=== PATIENT | female | born 1980 | race Hispanic/Latino ===

== ENCOUNTER 2019-01-29 14:45 | Emergency (ER) | payer MEDICAID ==
[2019-01-29 16:06] LABS: BASOPHILS % (AUTO) 0.5 % (0.0-5.0); EOSINOPHILS % (AUTO) 0.4 % (0.0-8.0); HEMATOCRIT 35.9 % (36-48); LYMPHOCYTES % (AUTO) 39.2 % (21.0-51.0); MEAN CORPUSCULAR HEMOGLOBIN 27.4 pg (27.0-33.0); MEAN CORPUSCULAR HGB CONC 32.9 g/dL (32.0-36.0); MEAN CORPUSCULAR VOLUME 83.2 fL (79-99); MONOCYTES % (AUTO) 9.5 % (3.0-13.0); NEUTROPHILS % (AUTO) 50.4 % (40.0-77.0); NUCLEATED RED BLOOD CELLS 0.1 % (0.0-0.19); PLATELET COUNT (AUTO) 209 K/uL (130-400); RED BLOOD CELL COUNT(AUTO) 4.31 MIL/uL (4.00-5.50); RED CELL DISTRIBUTION WIDTH 14.7 % (11.0-15.5); WHITE BLOOD COUNT (AUTO) 5.4 K/uL (4.8-10.8)
[2019-01-29 16:27] LABS: CARBON DIOXIDE 29 mmol/L (21-32); CHLORIDE 107 mmol/L (101-111); CREATININE 0.7 mg/dL (0.5-1.5); GLOMERULAR FILTR. RATE CALC 99 mL/min (>60); GLUCOSE,RANDOM 82 mg/dL (70-105); POTASSIUM 3.3 mmol/L (3.5-5.1); SODIUM SERUM 143 mmol/L (136-145); UREA NITROGEN, BLOOD 13 mg/dL (7-18)
[2019-01-29 16:31] LABS: ALANINE AMINOTRANSFERASE 28 U/L (12-78); ALBUMIN 3.8 g/dL (3.5-5.0); ASPARTATE AMINOTRANSFERASE 23 U/L (10-37); BILIRUBIN,TOTAL 0.3 mg/dL (0.2-1.0); TOTAL PROTEIN, SERUM 8.2 g/dL (6.0-8.3)
[2019-01-29 16:32] LABS: ALCOHOL, BLOOD < 3 mg/dL (0-10)
[2019-01-29 17:45] LABS: AMPHET/METH SCREEN,URINE NEGATIVE (NEGATIVE); BARBITURATE SCREEN, URINE NEGATIVE (NEGATIVE); BENZODIAZEPINES SCREEN,URINE POSITIVE (NEGATIVE); CANNABINOID SCREEN,URINE NEGATIVE (NEGATIVE); COCAINE SCREEN,URINE NEGATIVE (NEGATIVE); OPIATE SCREEN,URINE NEGATIVE (NEGATIVE); PHENCYCLIDINE SCREEN,URINE NEGATIVE (NEGATIVE)
== END 2019-01-29 18:02 | disposition home or self-care (01) ==
LOC: EDH 14:45
DX: F41.9 Anxiety disorder, unspecified (principal); G40.909 Epilepsy, unspecified, not intractable, without status epilepticus; Z98.2 Presence of cerebrospinal fluid drainage device; Z72.0 Tobacco use; Z88.8 Allergy status to other drugs, medicaments and biological substances
CPT/HCPCS: 36415; 80053; 80305; 85025; 99284; G0480

== ENCOUNTER 2019-01-30 06:43 | Emergency (ER) | payer MEDICAID ==
[2019-01-30] MEDS ORDERED: DiphenhydrAMINE HCL 50 MG/ML VIAL ONE (07:24)
== END 2019-01-30 07:43 | disposition home or self-care (01) ==
LOC: EDH 06:43
DX: F41.9 Anxiety disorder, unspecified (principal); F33.8 Other recurrent depressive disorders; Z88.8 Allergy status to other drugs, medicaments and biological substances; Z79.899 Other long term (current) drug therapy
CPT/HCPCS: 96372; 99284; J1200

== ENCOUNTER 2019-05-14 22:02 | Emergency (ER) | payer OTHER, MEDICARE ==
[2019-05-14] MEDS ORDERED: ACETAMINOPHEN 325 MG TAB ONE (22:33)
== END 2019-05-14 23:23 | disposition home or self-care (01) ==
LOC: EDH 22:02
DX: S63.617A Unspecified sprain of left little finger, initial encounter (principal); S63.615A Unspecified sprain of left ring finger, initial encounter; F41.9 Anxiety disorder, unspecified; Z87.891 Personal history of nicotine dependence; Z88.8 Allergy status to other drugs, medicaments and biological substances; Z79.899 Other long term (current) drug therapy; W18.39XA Other fall on same level, initial encounter; Y93.01 Activity, walking, marching and hiking; Y92.89 Other specified places as the place of occurrence of the external cause; Y99.8 Other external cause status
CPT/HCPCS: 73140; 99282

== ENCOUNTER 2020-04-01 02:53 | Emergency (ER) | payer OTHER, MEDICARE | END 2020-04-01 03:08 | disposition home or self-care (01) | LOC: EDH 02:53 | DX: F32.89 Other specified depressive episodes (principal); F41.9 Anxiety disorder, unspecified; Z88.8 Allergy status to other drugs, medicaments and biological substances | CPT/HCPCS: 99281 ==

== ENCOUNTER 2020-10-01 16:46 | Emergency (ER) | payer OTHER, MEDICARE ==
[2020-10-01] MEDS ORDERED: KETOROLAC TROMETHAMINE 60 MG/2 ML VIAL ONE (17:52)
[2020-10-01] MEDS ORDERED: LORAZEPAM 1 MG TABLET ONE (17:53)
[2020-10-01 19:49] LABS: AMPHET/METH SCREEN,URINE NEGATIVE (NEGATIVE); BARBITURATE SCREEN, URINE NEGATIVE (NEGATIVE); BENZODIAZEPINES SCREEN,URINE NEGATIVE (NEGATIVE); CANNABINOID SCREEN,URINE NEGATIVE (NEGATIVE); COCAINE SCREEN,URINE NEGATIVE (NEGATIVE); OPIATE SCREEN,URINE NEGATIVE (NEGATIVE); PHENCYCLIDINE SCREEN,URINE NEGATIVE (NEGATIVE)
== END 2020-10-01 20:51 | disposition home or self-care (01) ==
LOC: EDH 16:46
DX: F43.0 Acute stress reaction (principal); F41.9 Anxiety disorder, unspecified; R51.9 Headache, unspecified; Z72.0 Tobacco use; Z88.9 Allergy status to unspecified drugs, medicaments and biological substances
CPT/HCPCS: 70450; 80305; 81025; 96372; 99284; J1885

== ENCOUNTER 2020-12-11 12:59 | Emergency (ER) | payer OTHER, MEDICARE ==
[~2020-12-11] VITALS: Ht 167.6 cm; Wt 74.8 kg
[2020-12-11 13:15] VITALS: BP 106/73
[2020-12-11 13:26] LABS: BASOPHILS % (AUTO) 0.6 % (0.0-5.0); LYMPHOCYTES % (AUTO) 17.8 % (21.0-51.0); MEAN CORPUSCULAR HEMOGLOBIN 29.1 pg (27.0-33.0); MEAN CORPUSCULAR HGB CONC 32.6 g/dL (32.0-36.0); MEAN CORPUSCULAR VOLUME 89.4 fL (79-99); MONOCYTES % (AUTO) 6.9 % (3.0-13.0); NEUTROPHILS % (AUTO) 74.4 % (40.0-77.0); PLATELET COUNT (AUTO) 220 K/uL (130-400); RED CELL DISTRIBUTION WIDTH 12.6 % (11.0-15.5); WHITE BLOOD COUNT (AUTO) 6.5 K/uL (4.8-10.8)
[2020-12-11 13:35] LABS: CREATININE 0.7 mg/dL (0.5-1.5); POTASSIUM 4.2 mmol/L (3.5-5.1)
[2020-12-11 13:36] LABS: APPEARANCE,URINE Cloudy (CLEAR); BILIRUBIN,URINE Negative (NEGATIVE); COLOR,URINE Yellow (YELLOW); GLUCOSE, URINE (UA) Negative (NEGATIVE); KETONES,URINE Trace mg/dL (NEGATIVE); LEUKOCYTE ESTERASE ,URINE Moderate (NEGATIVE); NITRATE,URINE Negative (NEGATIVE); OCCULT BLOOD,URINE Negative (NEGATIVE); PROTEIN,URINE Trace mg/dL (NEGATIVE)
[2020-12-11 13:40] LABS: ALBUMIN 3.8 g/dL (3.5-5.0); BILIRUBIN,TOTAL 0.3 mg/dL (0.2-1.0); PHENYTOIN (DILANTIN) 14.3 mcg/mL (10.0-20.0); TOTAL PROTEIN, SERUM 8.7 g/dL (6.0-8.3)
[2020-12-11 13:43] LABS: AMPHET/METH SCREEN,URINE NEGATIVE (NEGATIVE); BARBITURATE SCREEN, URINE NEGATIVE (NEGATIVE); BENZODIAZEPINES SCREEN,URINE NEGATIVE (NEGATIVE); CANNABINOID SCREEN,URINE NEGATIVE (NEGATIVE); COCAINE SCREEN,URINE NEGATIVE (NEGATIVE); OPIATE SCREEN,URINE NEGATIVE (NEGATIVE); PHENCYCLIDINE SCREEN,URINE NEGATIVE (NEGATIVE)
[2020-12-11 13:56] LABS: HCG,QUAL RESULT NEGATIVE (NEGATIVE)
[2020-12-11 14:03] LABS: BACTERIA,URINE Few /HPF (None Seen); MUCUS,URINE Few LPF (None Seen); RBC,URINE 0-1 /HPF (0-1); SQUAMOUS EPITHELIAL CELL,UR Moderate /HPF (0-2)
== END 2020-12-11 15:56 | disposition left against medical advice (07) ==
LOC: EDH 12:59
DX: R56.9 Unspecified convulsions (principal); Z53.21 Procedure and treatment not carried out due to patient leaving prior to being seen by health care provider
CPT/HCPCS: 36415; 80053; 80177; 80185; 80305; 81001; 81025; 85025; 87088

== ENCOUNTER 2021-10-22 23:41 | Emergency (ER) | payer OTHER, MEDICARE ==
[~2021-10-22] VITALS: Ht 154.9 cm; Wt 78.0 kg
[2021-10-23 00:45] LABS: APPEARANCE,URINE Clear (CLEAR); BILIRUBIN,URINE Negative (NEGATIVE); COLOR,URINE Yellow (YELLOW); GLUCOSE, URINE (UA) Negative (NEGATIVE); KETONES,URINE Negative (NEGATIVE); LEUKOCYTE ESTERASE ,URINE Trace (NEGATIVE); NITRATE,URINE Negative (NEGATIVE); OCCULT BLOOD,URINE Negative (NEGATIVE); PROTEIN,URINE Negative (NEGATIVE); UROBILINOGEN,URINE 0.2 mg/dL (0.2-1.0)
[2021-10-23 00:55] LABS: BACTERIA,URINE None Seen /HPF (None Seen); RBC,URINE None Seen /HPF (0-1); WBC,URINE 0-1 /HPF (0-1)
[2021-10-23 00:58] LABS: AMPHET/METH SCREEN,URINE NEGATIVE (NEGATIVE); BARBITURATE SCREEN, URINE NEGATIVE (NEGATIVE); BENZODIAZEPINES SCREEN,URINE NEGATIVE (NEGATIVE); CANNABINOID SCREEN,URINE NEGATIVE (NEGATIVE); COCAINE SCREEN,URINE NEGATIVE (NEGATIVE); OPIATE SCREEN,URINE NEGATIVE (NEGATIVE); PHENCYCLIDINE SCREEN,URINE NEGATIVE (NEGATIVE)
[2021-10-23 01:04] VITALS: BP 135/78
[2021-10-23 01:17] LABS: BASOPHILS % (AUTO) 0.6 % (0.0-5.0); EOSINOPHILS % (AUTO) 0.4 % (0.0-8.0); HEMATOCRIT 36.7 % (36-48); LYMPHOCYTES % (AUTO) 29.7 % (21.0-51.0); MEAN CORPUSCULAR HEMOGLOBIN 27.2 pg (27.0-33.0); MEAN CORPUSCULAR HGB CONC 31.9 g/dL (32.0-36.0); MEAN CORPUSCULAR VOLUME 85.3 fL (79-99); NEUTROPHILS % (AUTO) 59.8 % (40.0-77.0); PLATELET COUNT (AUTO) 218 K/uL (130-400); RED CELL DISTRIBUTION WIDTH 13.2 % (11.0-15.5); WHITE BLOOD COUNT (AUTO) 7.9 K/uL (4.8-10.8)
[2021-10-23 01:29] LABS: CREATININE 0.6 mg/dL (0.5-1.5); POTASSIUM 3.4 mmol/L (3.5-5.1)
[2021-10-23 01:35] LABS: ALBUMIN 3.2 g/dL (3.5-5.0); BILIRUBIN,TOTAL 0.1 mg/dL (0.2-1.0); PHENYTOIN (DILANTIN) 11.1 mcg/mL (10.0-20.0); TOTAL PROTEIN, SERUM 7.3 g/dL (6.0-8.3)
== END 2021-10-23 02:08 | disposition home or self-care (01) ==
LOC: EDH 23:41
DX: R25.9 Unspecified abnormal involuntary movements (principal); K21.9 Gastro-esophageal reflux disease without esophagitis; G62.9 Polyneuropathy, unspecified
CPT/HCPCS: 36415; 80053; 80185; 80305; 81001; 81025; 84484; 85025; 93005

== ENCOUNTER 2023-07-02 21:29 | Emergency (ER) | payer OTHER, MEDICARE ==
[2023-07-02] MEDS ORDERED: NACL 0.9% IV ONE (22:30)
[2023-07-02] MEDS ORDERED: PHENYTOIN IV ONE (22:30)
[2023-07-02] MEDS ORDERED: 0.9%NACL 1000ML 1,000 ML IV ONE (22:30)
[2023-07-02 22:55] LABS: BASOPHILS # (AUTO) 0.05 K/uL (0.00-0.20); BASOPHILS % (AUTO) 0.6 % (0.0-5.0); EOSINOPHILS # (AUTO) 0.14 K/uL (0.00-0.70); EOSINOPHILS % (AUTO) 1.6 % (0.0-8.0); IMMATURE GRANULOCYTE ABSOLUTE 0.02 K/uL (0-1); LYMPHOCYTES # (AUTO) 1.6 K/uL (1.0-4.8); MEAN CORPUSCULAR HEMOGLOBIN 28.6 pg (27.0-33.0); MEAN CORPUSCULAR HGB CONC 33.3 g/dL (32.0-36.0); MEAN CORPUSCULAR VOLUME 85.9 fL (79-99); MONOCYTES # (AUTO) 0.6 K/uL (0.1-1.0); MONOCYTES % (AUTO) 6.8 % (3.0-13.0); NEUTROPHILS # (AUTO) 6.5 K/uL (1.8-7.7); NEUTROPHILS % (AUTO) 72.8 % (40.0-77.0); PLATELET COUNT (AUTO) 218 K/uL (130-400); RED BLOOD CELL COUNT(AUTO) 4.54 MIL/uL (4.00-5.50); RED CELL DISTRIBUTION WIDTH 13.4 % (11.0-15.5)
[2023-07-02] MEDS ORDERED: PHENYTOIN SODIUM 250MG (50 MG/ML) VIAL ONE (23:04)
[2023-07-02 23:20] LABS: CREATININE 0.7 mg/dL (0.5-1.5); POTASSIUM 3.7 mmol/L (3.5-5.1)
[2023-07-02 23:23] LABS: ALBUMIN 3.5 g/dL (3.5-5.0); BILIRUBIN,TOTAL 0.1 mg/dL (0.2-1.0); PHENYTOIN (DILANTIN) 16.5 mcg/mL (10.0-20.0)
[2023-07-03 00:53] VITALS: BP 132/68; PULSE 78; RESP 17; O2SAT 98
== END 2023-07-03 01:16 | disposition home or self-care (01) ==
LOC: EDH 21:29
DX: G40.209 Localization-related (focal) (partial) symptomatic epilepsy and epileptic syndromes with complex partial seizures, not intractable, without status epilepticus (principal); K21.9 Gastro-esophageal reflux disease without esophagitis
CPT/HCPCS: 99283; 96374; 82550; 80185; 84484; 80053; 85025; 84146; 36415; J7030; J1165 ×2; J7050

== ENCOUNTER 2023-08-07 19:28 | Emergency (ER) | payer OTHER, MEDICARE ==
[2023-08-07 19:32] VITALS: BP 168/64; PULSE 96; RESP 16; O2SAT 100
[2023-08-07 20:39] LABS: AMPHET/METH SCREEN,URINE NEGATIVE (NEGATIVE); BARBITURATE SCREEN, URINE NEGATIVE (NEGATIVE); BENZODIAZEPINES SCREEN,URINE NEGATIVE (NEGATIVE); CANNABINOID SCREEN,URINE NEGATIVE (NEGATIVE); COCAINE SCREEN,URINE NEGATIVE (NEGATIVE); OPIATE SCREEN,URINE NEGATIVE (NEGATIVE); PHENCYCLIDINE SCREEN,URINE NEGATIVE (NEGATIVE)
[2023-08-07] MEDS: LEVETIRACETAM 500 MG TABLET PO SCH (22:02)
[2023-08-07] MEDS: LEVETIRACETAM 500 MG TABLET PO ONE (22:05)
== END 2023-08-07 22:37 | disposition home or self-care (01) ==
LOC: EDH 19:28
DX: R56.9 Unspecified convulsions (principal); K21.9 Gastro-esophageal reflux disease without esophagitis; Z98.2 Presence of cerebrospinal fluid drainage device
CPT/HCPCS: 80305

== ENCOUNTER 2023-09-27 08:52 | Emergency (ER) | payer OTHER, MEDICARE ==
[~2023-09-27] VITALS: Ht 154.9 cm; Wt 81.6 kg
[2023-09-27 10:32] LABS: BASOPHILS # (AUTO) 0.05 K/uL (0.00-0.20); BASOPHILS % (AUTO) 0.6 % (0.0-5.0); EOSINOPHILS # (AUTO) 0.05 K/uL (0.00-0.70); EOSINOPHILS % (AUTO) 0.6 % (0.0-8.0); HEMATOCRIT 39.1 % (36-48); IMMATURE GRANULOCYTE ABSOLUTE 0.03 K/uL (0-1); LYMPHOCYTES # (AUTO) 1.9 K/uL (1.0-4.8); MEAN CORPUSCULAR HGB CONC 33.2 g/dL (32.0-36.0); MEAN CORPUSCULAR VOLUME 87.1 fL (79-99); MONOCYTES # (AUTO) 0.7 K/uL (0.1-1.0); MONOCYTES % (AUTO) 7.8 % (3.0-13.0); NEUTROPHILS # (AUTO) 5.6 K/uL (1.8-7.7); NEUTROPHILS % (AUTO) 67.6 % (40.0-77.0); PLATELET COUNT (AUTO) 209 K/uL (130-400); RED BLOOD CELL COUNT(AUTO) 4.49 MIL/uL (4.00-5.50); RED CELL DISTRIBUTION WIDTH 13.2 % (11.0-15.5); WHITE BLOOD COUNT (AUTO) 8.3 K/uL (4.8-10.8)
[2023-09-27 11:00] LABS: CREATININE 0.8 mg/dL (0.5-1.0); POTASSIUM 3.4 mmol/L (3.5-5.1)
[2023-09-27 11:13] LABS: MAGNESIUM 2.1 mg/dL (1.80-2.40); THYROID STIMULATING HORMONE 1.65 uIU/mL (0.36-3.74)
[2023-09-27] MEDS: ONDANSETRON 4MG INJ IVP ONE (11:49)
[2023-09-27] MEDS: LORAZEPAM 2 MG/ML 1 ML VIAL IVP ONE (11:50)
[2023-09-27 14:00] VITALS: BP 113/68; PULSE 82; RESP 17; O2SAT 96
[2023-09-27] MEDS ORDERED: LORA2TAB80 PO (14:49)
[2023-09-27] MEDS ORDERED: GABA600T10 PO (14:49)
[2023-09-27] MEDS ORDERED: LEVE10006 PO ×2 (14:49)
[2023-09-27] MEDS ORDERED: ALBU18HF7 IH (14:49)
[2023-09-27] MEDS ORDERED: SIME80TA12 PO (14:49)
[2023-09-27] MEDS ORDERED: SERT-440 PO (14:49)
[2023-09-27] MEDS ORDERED: FAMO20TA8 PO (14:49)
[2023-09-27] MEDS ORDERED: PHEN100C9 PO (14:49)
[2023-09-27] MEDS ORDERED: ESOM40CA66 PO (14:49)
== END 2023-09-27 15:00 | disposition left against medical advice (07) ==
LOC: EDH 08:52
DX: R42 Dizziness and giddiness (principal); R11.0 Nausea; Z79.899 Other long term (current) drug therapy
CPT/HCPCS: 99285; 84443; 82550; 83735; 80048; 85025; 83605; 36415; 71045; 70450; 96374; 96375; J2405; J2060

== ENCOUNTER 2025-02-07 22:12 | Emergency (ER) | payer OTHER ==
[~2025-02-07] VITALS: Ht 154.9 cm; Wt 77.1 kg
[~2025-02-07 22:12] MED LIST: ALBU18HF7 IH; ASPI-1197 PO; CEPH500B PO; CETI10TA57 PO; ESOM40CA66 PO; FOLI1 PO; GABA-1405 PO; LACO100T14 PO; LEVE100023 PO; LORA2TAB80 PO; PHEN100C9 PO; SERT-440 PO
[2025-02-07 22:35] VITALS: TEMP 98.2
--- NOTE | 2025-02-07 22:44 | ERN ---
ED Note History of Present Illness Stated Complaint: SEIZURES Chief Complaint: Seizure Time Seen by MD: 22:23 Time Seen by Midlevel: 22:23 Dictation: The patient is a 44-year-old female with a history of hydrocephalus and seizures who presents to the emergency department with complaints of a five seizures onset prior to arrival around 8:00 p.m.. Patient reports seizures were not witnessed. Reports that she was able to get on her bed and denies any falls or injuries from the seizure. Patient denies any tongue biting. Denies any incontinence. Patient reports she has been compliant with her medication reports she takes Keppra gabapentin and lorazepam Allergies: Coded Allergies: ibuprofen (Unverified Allergy, Mild, DIZZINESS, 03/11/24) loperamide (Unverified Allergy, Unknown, 12/09/24) Home Meds Active Scripts Cephalexin Monohydrate (Keflex) 500 Mg Cap, 1 CAP PO BID for 7 Days, #14 CAP 0 Refills Prov:SUNNI MATUTE MD 09/28/24 Phenytoin Sodium Extended (Phenytoin Sodium Extended) 100 Mg Capsule, 200 MG PO BID, #60 CAP Prov:SUNNI MATUTE MD 09/28/24 Levetiracetam (Levetiracetam) 1,000 Mg Tablet, 2000 MG PO HS, #30 TAB Prov:SUNNI MATUTE MD 09/28/24 Levetiracetam (Levetiracetam) 1,000 Mg Tablet, 1500 MG PO DAILY, #30 TAB Prov:SUNNI MATUTE MD 09/28/24 Sertraline HCl (Sertraline HCl) 100 Mg Tablet, 100 MG PO DAILY, #30 TAB Prov:SUNNI MATUTE MD 09/28/24 Reported Medications Aspirin (Aspirin) 81 Mg Tab.chew, 81 MG PO DAILY, TAB.CHEW 09/30/24 Lacosamide (Lacosamide) 100 Mg Tablet, 1 TAB PO BID 09/30/24 Folic Acid (Folvite) 1 Mg Tab, 1 MG PO DAILY, TAB 03/11/24 Gabapentin (Gabapentin) 600 Mg Tablet, 600 MG PO BID, TAB 03/11/24 Cetirizine HCl (Cetirizine HCl) 10 Mg Tablet, 10 MG PO DAILY, TAB 03/11/24 Esomeprazole Magnesium (Esomeprazole Magnesium) 40 Mg Capsule.dr, 40 MG PO DAILY, CAP 03/11/24 Albuterol Sulfate (Ventolin Hfa) 90 Mcg Hfa.aer.ad, 18 GM IH TID PRN for RESPIRATORY SYMPTOMS, INHALER 09/27/23 Lorazepam (Ativan) 2 Mg Tablet, 2 MG PO BID PRN for ANXIETY/AGITATION, TAB 09/27/23 Esomeprazole Magnesium (Esomeprazole Magnesium) 40 Mg Capsule.dr, 40 MG PO DAILY, CAP 09/27/23 Past Medical History Past Medical History: Seizure 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, 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 Surgical History: Other, None Surgical History Other: HAND IRONER SHUNT Social History: Negative, Other RN Note Reviewed/Agreed w/PFSH: Yes Review of System Dictation Constitutional: Negative for fever,chills, and weight loss Eyes: Negative for injury, pain,redness, and discharge ENT: Negative for injury,pain or swelling Cardiovascular: Negative for chest pain, palpitations, and edema Respiratory: Negative for shortness of breath, cough, and wheezing, Abdomen/GI: Negative for abdominal pain, nausea, vomiting, diarrhea, and constipation Back: Negative for injury and pain : Negative for injury, bleeding and discharge MS/Extremity: Negative for injury and deformity Skin: Negative for rash, and discoloration Neuro: Negative for weakness, numbness, tingling, positive for seizures and headache Psych: Negative for suicide ideation, homicidal ideation, and hallucinations Initial Vital Sign VS Vital Signs Date Time Temp Pulse Resp B/P (MAP) Pulse Ox O2 Delivery O2 Flow Rate FiO2 02/07/25 22:13 98.1 90 16 113/74 99 Room Air 0 02/07/25 22:35 21 Physical Exam Dictation Vital Signs reviewed General Appearance: Alert, oriented x 3, no acute distress, well developed, nourished. Head and Face: non-traumatic. Eyes: PERRL, pink conjunctivas, eyelid no trauma, anterior chamber with arcus senilis. Ears: Pinnas intact and no signs of trauma or erythema ear canals clear and no discharge TM no erythema Nose: No discharge, no bleeding. Oropharynx: Mouth normal, tongue pink. pharynx clear,no erythema, tonsils no exudates, no abscesses noted, mucous membrane moist Neck: Supple, non-tender, no thyromegaly, no masses, no JVD, no bruits Breast:Deferred Chest:No tenderness, no crepitus, no paradoxical movement, no retractions Lungs:Clear, well-ventilated, symmetric, no rales, no wheezing, no rhonchi, no stridor, good breath sounds bilaterally Heart: Regular rate, regular rhythm, no murmur, no gallops Vascular: no peripheral edema, Abdomen: Soft, positive bowel sounds, nondistended, no guarding, nontender, no rebound, no masses no hepatomegaly, no splenomegaly, no Campos's sign, no hernias. Rectal: Deferred Genital: Deferred Neurological: Normal speech, motor function intact, sensory function intact Musculoskeletal: Neck nontender, full range of motion, back nontender, full range of motion, Extremities: nontender, full range of motion Skin: Color pink, dry, no turgor, no rash, no lacerations, no abrasions, no contusions. Lymphatic: Deferred Results (Laboratory/Radiology) Laboratory/Radiology Laboratory Tests Test 02/07/25 22:45 02/08/25 01:08 White Blood Count 7.8 K/uL (4.8-10.8) Red Blood Count 3.89 MIL/uL (4.00-5.50) L Hemoglobin 10.5 g/dL (12.0-16.0) L Hematocrit 32.8 % (36-48) L Mean Corpuscular Volume 84.3 fL (79-99) Mean Corpuscular Hemoglobin 27.0 pg (27.0-33.0) Mean Corpuscular Hemoglobin Concent 32.0 g/dL (32.0-36.0) Red Cell Distribution Width 15.3 % (11.0-15.5) Platelet Count 224 K/uL (130-400) Mean Platelet Volume 10.7 fL (7.5-10.5) H Immature Granulocyte % (Auto) 0.4 % (0-1) Neutrophils (%) (Auto) 59.4 % (40.0-77.0) Lymphocytes (%) (Auto) 29.3 % (21.0-51.0) Monocytes (%) (Auto) 9.0 % (3.0-13.0) Eosinophils (%) (Auto) 1.5 % (0.0-8.0) Basophils (%) (Auto) 0.4 % (0.0-5.0) Neutrophils # (Auto) 4.6 K/uL (1.8-7.7) Lymphocytes # (Auto) 2.3 K/uL (1.0-4.8) Monocytes # (Auto) 0.7 K/uL (0.1-1.0) Eosinophils # (Auto) 0.12 K/uL (0.00-0.70) Basophils # (Auto) 0.03 K/uL (0.00-0.20) Absolute Immature Granulocyte (auto 0.03 K/uL (0-1) Nucleated Red Blood Cells 0.0 % (0.0-0.19) Sodium Level 138 mmol/L (136-145) Potassium Level 2.9 mmol/L (3.5-5.1) *L Chloride Level 103 mmol/L (101-111) Carbon Dioxide Level 29 mmol/L (21-32) Blood Urea Nitrogen 14 mg/dL (7-18) Creatinine 0.7 mg/dL (0.5-1.0) Glomerular Filtration Rate Calc 109 mL/min (>90) Random Glucose 102 mg/dL (70-105) Total Calcium 8.2 mg/dL (8.5-10.1) L Magnesium Level 1.70 mg/dL (1.80-2.40) L Serum Test, Qualitative NEGATIVE (NEGATIVE) Urine Opiates Screen NEGATIVE (NEGATIVE) Urine Barbiturates Screen NEGATIVE (NEGATIVE) Urine Phencyclidine Screen NEGATIVE (NEGATIVE) Urine Amphetamines Screen NEGATIVE (NEGATIVE) Urine Benzodiazepines Screen NEGATIVE (NEGATIVE) Urine Cocaine Screen NEGATIVE (NEGATIVE) Urine Marijuana (THC) Screen NEGATIVE (NEGATIVE) REASON: seizure ORDERING PHYSICIAN: ROMEO MARTELL PROCEDURE: HEAD WO - CT HEAD/BRAIN W/O CONTRAST EXAM: Non-contrast CT examination of the Brain. CLINICAL HISTORY: Seizure. TECHNIQUE: Thin collimated axial CT images of the brain were obtained, with sagittal and coronal reformatted images also submitted. CT scan done according to ALARA (As Low as Reasonably Achievable). CONTRAST USED: None. COMPARISON: Prior CT brain dated 12/10/24. 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 Corpus callosum agenesis. Left parietal route ventriculoperitoneal shunt tip terminates at the frontal horn of the right lateral ventricle. Nonspecific calcification along the right posterior tentorium cerebelli. No acute intracranial abnormality is present. No acute cortical infarction, hemorrhage, mass, or mass effect. The skull base and calvarium are intact. The included portions of the paranasal sinuses and mastoid air cells are clear. 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 Questionable corpus callosum agenesis. Left parietal route ventriculoperitoneal shunt tip terminates at the frontal horn of the right lateral ventricle. No acute cortical infarction, hemorrhage, mass, or mass effect. 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 No significant interval changes. /[place] Labs Reviewed?: Yes ED Course ED Course Orders Procedure Category Date Status Time Cbc With Differential LAB 02/07/25 Complete 22:36 Ct Head/Brain W/O CT 02/07/25 Resulted Contrast 22:36 0.9%Nacl 1000ml (Ns PHA 02/07/25 In Process 1000ml) 23:00 Basic Metabolic Panel LAB 02/07/25 Complete 22:36 Testing, LAB 02/07/25 Complete Serum Hcg 22:36 Drug Screen Urine LAB 02/07/25 Complete 22:36 Acetaminophen 500mg PHA 02/07/25 Complete Tab (Tylenol 500mg T 23:00 Keppra LAB 02/07/25 In Process (Levetiracetam) Level 22:38 Magnesium LAB 02/07/25 Complete 23:39 Potassium Bicarb/Cit PHA 02/08/25 Complete Ac 25meq (K-Lyte Ta 00:00 Levetiracetam 500 PHA 02/08/25 Complete Mg/5 M[address] S[address] V (Keppra 5 00:30 Magnesium Oxide PHA 02/08/25 Complete (Mag-Ox) 01:00 Current Medications Medications (Trade) Dose Ordered Sig/Mary Route PRN Reason Start Time Stop Time Status Last Admin Dose Admin Acetaminophen (TYLenol 500MG TAB) 1,000 mg ONCE ONCE PO 02/07/25 23:00 02/07/25 23:01 DC 02/07/25 22:50 Levetiracetam (kepPRA 500 MG/5 ML SD VIAL) 1,000 mg ONCE ONCE IV 02/08/25 00:30 02/08/25 00:31 DC 02/08/25 00:33 Magnesium Oxide (Mag-Ox) 400 mg ONCE ONCE PO 02/08/25 01:00 02/08/25 01:01 DC 02/08/25 01:13 Potassium Bicarbonate (K-Lyte Tablet Eff 25 Meq Tablet.eff) 50 meq ONCE ONCE PO 02/08/25 00:00 02/08/25 00:01 DC 02/08/25 00:33 Sodium Chloride 1,000 ml @ 125 mls/hr ONCE ONCE IV 02/07/25 23:00 02/08/25 06:59 02/07/25 22:50 Vital Signs Date Time Temp Pulse Resp B/P (MAP) Pulse Ox O2 Delivery O2 Flow Rate FiO2 02/08/25 00:54 77 14 117/74 98 Room Air* 0 21 02/07/25 22:35 98.2 87 16 105/66 100 Room Air* 0 21 02/07/25 22:13 98.1 90 16 113/74 99 Room Air 0 Medical Decision Making MDM MDM: The patient is a 44-year-old female with a history of hydrocephalus and seizures who presents to the emergency department with complaints of a five seizures onset prior to arrival around 8:00 p.m.. Patient reports seizures were not witnessed. Reports that she was able to get on her bed and denies any falls or injuries from the seizure. Patient denies any tongue biting. Denies any incontinence. Patient reports she has been compliant with her medication reports she takes Keppra gabapentin and lorazepam CBC showed no leukocytosis, mild normocytic anemia, chemistry showed mild hypokalemia, hypomagnesemia normal renal function. Electrolytes were replaced. CT head showed Dandy-Walker malformation with no acute intracerebral infarcts or bleeding. Given patient recurrent seizures who was transferred for Neurology evaluation. [facility] refused transfer we will be transferred to [facility] under the care of Dr. Ousmane ASHFORD doctor Differential diagnosis: seizures, electrolyte imbalance, dehydration, intracerebral hemorrhage Comorbidities: Seizures, hydrocephalus Tests considered and not ordered secondary to shared decision making include: none Previous outside records reviewed: none Risk of complication and/or morbidity or mortality of patient management: The patient meets criteria for transferred Need for emergency major/minor surgery: No There are no social concerns with this patient. I independently interpreted the tests I ordered (labs, urinalysis, etc.). I discussed the case with the hospitalist for transfer I discussed the case with the following specialists: none. Historian: valerie. I independently interpreted imaging studies and EKGs that I ordered (US, CT, XR, EKG, etc.). External chart review: none. Medical management and examination interpretation discussions were had by me with other qualified healthcare professionals as indicated for the patient's care. DX & DISP Disposition: Transfer Decision to Admit Time: 03:57 Departure Impression: Primary Impression: Seizures Additional Impression: Breakthrough seizure Condition: Stable Referrals: DAVID GUZMAN MD (PCP) ROMEO MARTELL Feb 07, 2025 22:44 GARRET AGUSTIN MD Feb 08, 2025 03:57
[2025-02-07] MEDS: 0.9%NACL 1000ML 1,000 ML IV ONE (22:50)
[2025-02-07 22:54] LABS: IMMATURE GRANULOCYTE ABSOLUTE 0.03 K/uL (0-1); NUCLEATED RED BLOOD CELLS 0.0 % (0.0-0.19); PLATELET COUNT (AUTO) 224 K/uL (130-400); RED BLOOD CELL COUNT(AUTO) 3.89 MIL/uL (4.00-5.50); RED CELL DISTRIBUTION WIDTH 15.3 % (11.0-15.5); WHITE BLOOD COUNT (AUTO) 7.8 K/uL (4.8-10.8)
[2025-02-07 23:16] LABS: CREATININE 0.7 mg/dL (0.5-1.0); GLOMERULAR FILTR. RATE CALC 109.0 mL/min (>90); GLUCOSE,RANDOM 102.0 mg/dL (70-105); SODIUM SERUM 138.0 mmol/L (136-145); UREA NITROGEN, BLOOD 14.0 mg/dL (7-18)
--- NOTE | 2025-02-08 00:40 | HMCIMG ---
EXAM: Non-contrast CT examination of the Brain. CLINICAL HISTORY: Seizure. TECHNIQUE: Thin collimated axial CT images of the brain were obtained, with sagittal and coronal reformatted images also submitted. CT scan done according to ALARA (As Low as Reasonably Achievable). CONTRAST USED: None. COMPARISON: Prior CT brain dated 12/10/24. 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 Corpus callosum agenesis. Left parietal route ventriculoperitoneal shunt tip terminates at the frontal horn of the right lateral ventricle. Nonspecific calcification along the right posterior tentorium cerebelli. No acute intracranial abnormality is present. No acute cortical infarction, hemorrhage, mass, or mass effect. The skull base and calvarium are intact. The included portions of the paranasal sinuses and mastoid air cells are clear. 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 Questionable corpus callosum agenesis. Left parietal route ventriculoperitoneal shunt tip terminates at the frontal horn of the right lateral ventricle. No acute cortical infarction, hemorrhage, mass, or mass effect. 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 No significant interval changes. /[place]
[2025-02-08] MEDS: MAGNESIUM OXIDE 400 MG TABLET PO ONE (01:13)
--- NOTE | 2025-02-08 01:27 | NUR ---
TRANSFER CALL PLACED TO [facility]ORDINATOR TO INITIATE TRANSFER FOR NEUROLOGY SERVICES
[2025-02-08 01:53] LABS: AMPHET/METH SCREEN,URINE NEGATIVE (NEGATIVE); BARBITURATE SCREEN, URINE NEGATIVE (NEGATIVE); CANNABINOID SCREEN,URINE NEGATIVE (NEGATIVE); COCAINE SCREEN,URINE NEGATIVE (NEGATIVE)
--- NOTE | 2025-02-08 03:01 | NUR ---
TRANSFER TENET RECEIVER HAS CALLED BACK STATING THAT [facility] NOT [facility] PATIENT HER PRIMARY PHYSICIAN DOES NOT PRACTICE AT THEIR FACILITY
--- NOTE | 2025-02-08 03:20 | NUR ---
TRANSFER REQUESTED TENET ATTEMPT TRANSFER TO [facility] IN [place]
--- NOTE | 2025-02-08 03:33 | NUR ---
TRANSFER PT. ACCEPTED BY RODERICK RUDD MD FOR TRANSFER TO [facility]
--- NOTE | 2025-02-08 04:35 | NUR ---
ER-ER REPORT GIVEN TO BRANDON RN, PT GETTING TRANSFERRED TO [facility].
--- NOTE | 2025-02-08 05:45 | NUR ---
[facility] HERE TO TRANSFER PT TO [facility].
[2025-02-08 05:59] VITALS: BP 113/68; PULSE 82; RESP 14; O2SAT 98
== END 2025-02-08 06:00 | disposition short-term general hospital (02) ==
LOC: EDH 22:12
DX: G40.909 Epilepsy, unspecified, not intractable, without status epilepticus (principal); Z79.899 Other long term (current) drug therapy
CPT/HCPCS: 99285; 70450; 96361; 83735; 80048; 80305; 84703; 85025; 36415; 80177; 96374; J7030; J1953

== ENCOUNTER 2025-03-06 05:00 | Emergency (ER) | payer OTHER ==
[~2025-03-06] VITALS: Ht 154.9 cm; Wt 73.5 kg
[2025-03-06 05:06] VITALS: BP 110/71; PULSE 91; RESP 20; TEMP 97.9; O2SAT 98
[2025-03-06] MEDS ORDERED: MELA5TAB PO (05:32)
[2025-03-06] MEDS ORDERED: HYDR-3421 PO (05:32)
--- NOTE | 2025-03-06 05:32 | ERN ---
ED Note History of Present Illness Stated Complaint: INSOMNIA X2 HRS Chief Complaint: Insomnia Time Seen by : 05:09 Dictation: This is a 44-year-old female with known history of congenital hydrocephalus multiple stents, history of seizure disorder called EMS and came to the ER iris use she could not sleep for the past 3-4 hours as she was trying to. Apparently she had to call ambulance for her aches after which she stated that he called her every few minutes and her sleep got disturbed. She was unable to go to sleep so she came in to ER Better 97.9 pulse 91 respirations 20 blood pressure 110/71 with a pulse oximetry of 97% on room air Allergies: Coded Allergies: ibuprofen (Unverified Allergy, Mild, DIZZINESS, 03/11/24) loperamide (Unverified Allergy, Unknown, 12/09/24) Home Meds Active Scripts Hydroxyzine HCl (Hydroxyzine HCl) 25 Mg Tablet, 25 MG PO HS for Insomnia for 7 Days, #7 TAB 0 Refills Prov:SUMIT FUENTES MD 03/06/25 Melatonin (Melatonin) 5 Mg Tab.subl, 1 TAB PO HS for sleep for 10 Days, #10 TAB 0 Refills Prov:SUMIT FUENTES MD 03/06/25 Cephalexin Monohydrate (Keflex) 500 Mg Cap, 1 CAP PO BID for 7 Days, #14 CAP 0 Refills Prov:SUNNI MATUTE MD 09/28/24 Phenytoin Sodium Extended (Phenytoin Sodium Extended) 100 Mg Capsule, 200 MG PO BID, #60 CAP Prov:SUNNI MATUTE MD 09/28/24 Levetiracetam (Levetiracetam) 1,000 Mg Tablet, 2000 MG PO HS, #30 TAB Prov:SUNNI MATUTE MD 09/28/24 Levetiracetam (Levetiracetam) 1,000 Mg Tablet, 1500 MG PO DAILY, #30 TAB Prov:SUNNI MATUTE MD 09/28/24 Sertraline HCl (Sertraline HCl) 100 Mg Tablet, 100 MG PO DAILY, #30 TAB Prov:SUNNI MATUTE MD 09/28/24 Reported Medications Aspirin (Aspirin) 81 Mg Tab.chew, 81 MG PO DAILY, TAB.CHEW 09/30/24 Lacosamide (Lacosamide) 100 Mg Tablet, 1 TAB PO BID 09/30/24 Folic Acid (Folvite) 1 Mg Tab, 1 MG PO DAILY, TAB 03/11/24 Gabapentin (Gabapentin) 600 Mg Tablet, 600 MG PO BID, TAB 03/11/24 Cetirizine HCl (Cetirizine HCl) 10 Mg Tablet, 10 MG PO DAILY, TAB 03/11/24 Esomeprazole Magnesium (Esomeprazole Magnesium) 40 Mg Capsule.dr, 40 MG PO DAILY, CAP 03/11/24 Albuterol Sulfate (Ventolin Hfa) 90 Mcg Hfa.aer.ad, 18 GM IH TID PRN for RESPIRATORY SYMPTOMS, INHALER 09/27/23 Lorazepam (Ativan) 2 Mg Tablet, 2 MG PO BID PRN for ANXIETY/AGITATION, TAB 09/27/23 Esomeprazole Magnesium (Esomeprazole Magnesium) 40 Mg Capsule.dr, 40 MG PO DAILY, CAP 09/27/23 Past Medical History Past Medical History: Seizure, Other 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, 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 Surgical History: Other, None 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 Social History: Drugs (Cannabis), Negative, Other History: Not Applicable RN Note Reviewed/Agreed w/PFSH: Yes Review of System Dictation Constitutional: Negative for fever,chills, and weight loss Eyes: Negative for injury, pain,redness, and discharge ENT: Negative for injury,pain or swelling Cardiovascular: Negative for chest pain, palpitations, and edema Respiratory: Negative for shortness of breath, cough, and wheezing, Abdomen/GI: Negative for abdominal pain, nausea, vomiting, diarrhea, and constipation Back: Negative for injury and pain : Negative for injury, bleeding and discharge MS/Extremity: Negative for injury and deformity Skin: Negative for rash, and discoloration Neuro: Negative for headache, weakness, numbness, tingling, and seizure positive for insomnia Psych: Negative for suicide ideation, homicidal ideation, and hallucinations Initial Vital Sign VS Vital Signs Date Time Temp Pulse Resp B/P (MAP) Pulse Ox O2 Delivery O2 Flow Rate FiO2 03/06/25 05:06 97.9 91 20 110/71 98 Room Air* 0 21 Physical Exam Dictation General: awake, alert, NAD Head/Face: Normocephalic, atraumatic Eyes: PERRL, EOMI, vision at baseline ENT: oral cavity clear, TMs clear, no signs of infection Neck: Trachea midline, supple, no nuchal rigidity Cardiovascular: RRR, normal S1/S2, No MRGs, no JVD Respiratory: CTAB, no respiratory distress, No rales or wheezes Abdomen: Soft, non-tender, non-distended, normal bowel sounds, no guarding or rebound. Skin: Warm, dry, normal turgor, no rash MS/Extremity: Pulses equal, no cyanosis, neurovascular intact, FROM Neuro: COAx4, GCS 15, strength 5/5, CN 2-12 intact, normal cerebellar exam, normal gait, Psych: Normal behavior, mood, and affect normal Extremities-trace edema without any palpable cords, Homans sign is negative ED Course ED Course Vital Signs Date Time Temp Pulse Resp B/P (MAP) Pulse Ox O2 Delivery O2 Flow Rate FiO2 03/06/25 05:06 97.9 91 20 110/71 98 Room Air 03/06/25 05:06 97.9 91 20 110/71 98 Room Air* 0 21 Medical Decision Making MDM Differential diagnosis: Occasional insomnia, sleep onset insomnia, sleep maintenance insomnia Rationale: Tests considered and ordered secondary to shared decision making include: Previous outside records reviewed: Old ER visits. Risk of complication and/or morbidity or mortality of patient management: None Medications-Per medication reconciliation Need for hospitalization: Patient does not meet criteria for hospitalization. Need for emergency major/minor surgery: No There are no social concerns with this patient. Prescription drug management Prescriptions will include symptomatic care Patient's prior external medical records from other ER visits were reviewed by me as indicated. Prior testing and results from previous visits were reviewed. Prior tests were taken into account with medical decision making and resource utilization, independent historian/historians were used to obtain complete medical history. I independently interpreted the test that were performed, results were reviewed by me and considered findings on radiology if ordered. Medical management and examination interpretation discussions were had by me with other qualified healthcare professionals as indicated for the patient's care. Problem List Problem List: (1) Insomnia DX & DISP Disposition: Discharge Departure Impression: Primary Impression: Insomnia Condition: Stable Scripts Hydroxyzine HCl (Hydroxyzine HCl) 25 Mg Tablet 25 MG PO HS for Insomnia for 7 Days, #7 TAB 0 Refills Prov: SUMIT FUENTES MD 03/06/25 Melatonin (Melatonin) 5 Mg Tab.subl 1 TAB PO HS for sleep for 10 Days, #10 TAB 0 Refills Prov: SUMIT FUENTES MD 03/06/25 Additional Instructions: Patient and the caregiver have been informed of all the diagnostic tests and the imaging conducted during the today's visit to the emergency room and has verbalized understanding of the results I have personally reviewed and interpreted all diagnostic exams performed here in the ER today as well as the vital signs documented by the nursing staff. The patient is now being discharged to home and should follow up with the primary care physician or the specialist as directed by the ER staff. Follow-up with primary care provider in 1 to 2 days. Take medications as directed here in the emergency room. Okay to continue home medications unless otherwise discussed during your visit in the emergency room today. Return to your nearest emergency room if symptoms worsen or if there is no improvement. Call 911 if you need immediate assistance. Take Tylenol or Motrin [id number] as needed and if no contraindications are present. Increase oral hydration. A wound culture or urine culture was ordered here in the emergency room department please follow-up with primary care provider and advise them to get repeat ports from our facility. If you had any Leonel wrap/splints that were applied here, please do not remove them until you see your primary care or specialty. Referrals: DAVID GUZMAN MD (PCP) SUMIT FUENTES MD Mar 06, 2025 05:32
== END 2025-03-06 05:41 | disposition home or self-care (01) ==
LOC: EDH 05:00
DX: G47.00 Insomnia, unspecified (principal); Z79.82 Long term (current) use of aspirin; Z79.899 Other long term (current) drug therapy; Z88.6 Allergy status to analgesic agent; Z98.2 Presence of cerebrospinal fluid drainage device
CPT/HCPCS: 99283

== ENCOUNTER 2025-04-20 13:56 | Emergency (ER) | payer OTHER, MEDICARE ==
[~2025-04-20] VITALS: Ht 157.5 cm; Wt 62.6 kg
[~2025-04-20 13:56] MED LIST changes: +HYDR-3421 PO; +MELA5TAB PO
--- NOTE | 2025-04-20 14:09 | ERN ---
ED Note History of Present Illness Stated Complaint: SEIZURES Chief Complaint: Seizure Time Seen by MD: 13:58 Dictation: PATIENT IS A 44-YEAR-OLD FEMALE COMING IN VIA EMS AFTER HAVING FOR WITNESSED SEIZURES WHILE SHE WAS UP AND A TOOTH WITHDRAWN THIS MORNING. SHE IS WELL KNOWN TO [facility] OUT[facility]ANYA STATES SHE HAS BEEN COMPLIANT. HER NEUROLOGISTS HIS DOCTOR AYESHA GRAHAM. HAS NO COMPLAINTS OF VOICE THERE WAS NO PAIN Allergies: Coded Allergies: ibuprofen (Unverified Allergy, Mild, DIZZINESS, 03/11/24) loperamide (Unverified Allergy, Unknown, 12/09/24) Home Meds Active Scripts Hydroxyzine HCl (Hydroxyzine HCl) 25 Mg Tablet, 25 MG PO HS for Insomnia for 7 Days, #7 TAB 0 Refills Prov:SUMIT FUENTES MD 03/06/25 Melatonin (Melatonin) 5 Mg Tab.subl, 1 TAB PO HS for sleep for 10 Days, #10 TAB 0 Refills Prov:SUMIT FUENTES MD 03/06/25 Cephalexin Monohydrate (Keflex) 500 Mg Cap, 1 CAP PO BID for 7 Days, #14 CAP 0 Refills Prov:SUNNI MATUTE MD 09/28/24 Phenytoin Sodium Extended (Phenytoin Sodium Extended) 100 Mg Capsule, 200 MG PO BID, #60 CAP Prov:SUNNI MATUTE MD 09/28/24 Levetiracetam (Levetiracetam) 1,000 Mg Tablet, 2000 MG PO HS, #30 TAB Prov:SUNNI MATUTE MD 09/28/24 Levetiracetam (Levetiracetam) 1,000 Mg Tablet, 1500 MG PO DAILY, #30 TAB Prov:SUNNI MATUTE MD 09/28/24 Sertraline HCl (Sertraline HCl) 100 Mg Tablet, 100 MG PO DAILY, #30 TAB Prov:SUNNI MATUTE MD 09/28/24 Reported Medications Aspirin (Aspirin) 81 Mg Tab.chew, 81 MG PO DAILY, TAB.CHEW 09/30/24 Lacosamide (Lacosamide) 100 Mg Tablet, 1 TAB PO BID 09/30/24 Folic Acid (Folvite) 1 Mg Tab, 1 MG PO DAILY, TAB 03/11/24 Gabapentin (Gabapentin) 600 Mg Tablet, 600 MG PO BID, TAB 03/11/24 Cetirizine HCl (Cetirizine HCl) 10 Mg Tablet, 10 MG PO DAILY, TAB 03/11/24 Esomeprazole Magnesium (Esomeprazole Magnesium) 40 Mg Capsule.dr, 40 MG PO DAILY, CAP 03/11/24 Albuterol Sulfate (Ventolin Hfa) 90 Mcg Hfa.aer.ad, 18 GM IH TID PRN for RESPIRATORY SYMPTOMS, INHALER 09/27/23 Lorazepam (Ativan) 2 Mg Tablet, 2 MG PO BID PRN for ANXIETY/AGITATION, TAB 09/27/23 Esomeprazole Magnesium (Esomeprazole Magnesium) 40 Mg Capsule.dr, 40 MG PO DAILY, CAP 09/27/23 Past Medical History Past Medical History: Other Additional Past Medical Hx: SEIZURES Surgical History: Other Surgical History Other: 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 13 POINT REVIEW OF SYSTEMS ASSESSED AND ALL NEGATIVE EXCEPT FOR ABOVE. Initial Vital Sign VS Vital Signs Date Time Temp Pulse Resp B/P (MAP) Pulse Ox O2 Delivery O2 Flow Rate FiO2 04/20/25 13:57 98.2 103 18 133/86 98 Room Air 0 04/20/25 14:18 21 Physical Exam Dictation VITAL SIGNS REVIEWED GENERAL APPEARANCE: ALERT, ORIENTED X 3, NO ACUTE DISTRESS, WELL DEVELOPED, NOURISHED. NO POSTICTAL ACTIVITY HEAD AND FACE: NON-TRAUMATIC. EYES: PERRL, PINK CONJUNCTIVAS, EYELID NO TRAUMA, ANTERIOR CHAMBER WITH ARCUS SENILIS. EARS: PINNAS INTACT AND NO SIGNS OF TRAUMA OR ERYTHEMA EAR CANALS CLEAR AND NO DISCHARGE TM NO ERYTHEMA NOSE: NO DISCHARGE, NO BLEEDING. OROPHARYNX: MOUTH NORMAL, TONGUE PINK, PHARYNX CLEAR,NO ERYTHEMA, TONSILS NO EXUDATES, NO ABSCESSES NOTED, MUCOUS MEMBRANE MOIST NECK: SUPPLE, NON-TENDER, NO THYROMEGALY, NO MASSES, NO JVD, NO BRUITS BREAST:DEFERRED CHEST:NO TENDERNESS, NO CREPITUS, NO PARADOXICAL MOVEMENT, NO RETRACTIONS LUNGS:CLEAR, WELL-VENTILATED, SYMMETRIC, NO RALES, NO WHEEZING, NO RHONCHI, NO STRIDOR, GOOD BREATH SOUNDS BILATERALLY HEART: REGULAR RATE, REGULAR RHYTHM, NO MURMUR, NO GALLOPS VASCULAR: NO PERIPHERAL EDEMA, ABDOMEN: SOFT, POSITIVE BOWEL SOUNDS, NONDISTENDED, NO GUARDING, NONTENDER, NO REBOUND, NO MASSES NO HEPATOMEGALY, NO SPLENOMEGALY, NO SAINI'S SIGN, NO HERNIAS. RECTAL: DEFERRED GENITAL: DEFERRED NEUROLOGICAL: NORMAL SPEECH, MOTOR FUNCTION INTACT, SENSORY FUNCTION INTACT MUSCULOSKELETAL: NECK NONTENDER, FULL RANGE OF MOTION, BACK NONTENDER, FULL RANGE OF MOTION, EXTREMITIES: NONTENDER, FULL RANGE OF MOTION SKIN: COLOR PINK, DRY, NO TURGOR, NO RASH, NO LACERATIONS, NO ABRASIONS, NO CONTUSIONS. LYMPHATIC: DEFERRED Results (Laboratory/Radiology) Laboratory/Radiology Laboratory Tests Test 04/20/25 14:12 04/20/25 14:49 White Blood Count 6.3 K/uL (4.8-10.8) Red Blood Count 4.65 MIL/uL (4.00-5.50) Hemoglobin 12.1 g/dL (12.0-16.0) Hematocrit 38.9 % (36-48) Mean Corpuscular Volume 83.7 fL (79-99) Mean Corpuscular Hemoglobin 26.0 pg (27.0-33.0) L Mean Corpuscular Hemoglobin Concent 31.1 g/dL (32.0-36.0) L Red Cell Distribution Width 14.4 % (11.0-15.5) Platelet Count 230 K/uL (130-400) Mean Platelet Volume 10.8 fL (7.5-10.5) H Immature Granulocyte % (Auto) 0.2 % (0-1) Neutrophils (%) (Auto) 61.6 % (40.0-77.0) Lymphocytes (%) (Auto) 28.0 % (21.0-51.0) Monocytes (%) (Auto) 8.5 % (3.0-13.0) Eosinophils (%) (Auto) 1.1 % (0.0-8.0) Basophils (%) (Auto) 0.6 % (0.0-5.0) Neutrophils # (Auto) 3.9 K/uL (1.8-7.7) Lymphocytes # (Auto) 1.8 K/uL (1.0-4.8) Monocytes # (Auto) 0.5 K/uL (0.1-1.0) Eosinophils # (Auto) 0.07 K/uL (0.00-0.70) Basophils # (Auto) 0.04 K/uL (0.00-0.20) Absolute Immature Granulocyte (auto 0.01 K/uL (0-1) Nucleated Red Blood Cells 0.0 % (0.0-0.19) Sodium Level 136 mmol/L (136-145) Potassium Level 4.7 mmol/L (3.5-5.1) Chloride Level 99 mmol/L (101-111) L Carbon Dioxide Level 32 mmol/L (21-32) Blood Urea Nitrogen 17 mg/dL (7-18) Creatinine 0.5 mg/dL (0.5-1.0) Glomerular Filtration Rate Calc 118 mL/min (>90) Random Glucose 114 mg/dL (70-105) H Total Calcium 8.6 mg/dL (8.5-10.1) Urine Color COLORLESS (YELLOW) Urine Appearance CLEAR (CLEAR) Urine pH 7.5 (5.0-8.0) Urine Specific [place] 1.011 (1.001-1.031) Urine Protein NEGATIVE mg/dL (NEGATIVE) Urine Glucose (UA) NEGATIVE mg/dL (NEGATIVE) Urine Ketones NEGATIVE mg/dL (NEGATIVE) Urine Occult Blood NEGATIVE (NEGATIVE) Urine Nitrate NEGATIVE (NEGATIVE) Urine Bilirubin NEGATIVE mg/dL (NEGATIVE) Urine Urobilinogen 0.2 mg/dL (0.2-1.0) Urine Leukocyte Esterase 250 Gutierrez/uL (NEGATIVE) H Urine RBC 2-5 /HPF (0-1) H Urine WBC 11-25 /HPF (0-1) H Urine Squamous Epithelial Cells FEW /HPF (0-2) Urine Bacteria RARE /HPF (None Seen) Urine HCG, Qualitative NEGATIVE (NEGATIVE) AM: CT Head Without IV contrast. CLINICAL HISTORY: MULTIPLE SEIZURES TODAY. TOUR CONSULTANT SHUNT IN PLACE TECHNIQUE: Axial computed tomography images of the head/brain without intravenous contrast. COMPARISON: February 07 2025 FINDINGS: BRAIN: No evidence of acute hemorrhage. No mass lesion. No CT evidence for acute territorial infarct. No midline shift or extra-axial collections. 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 VENTRICLES: Dilated ventricular system with TOUR CONSULTANT shunt terminating in the right lateral ventricle unchanged. ORBITS: The orbits are unremarkable. SINUSES AND MASTOIDS: The paranasal sinuses and mastoid air cells are clear. BONES: No fracture. SOFT TISSUES: Unremarkable. IMPRESSION: No acute intracranial abnormality. Chronic changes as described /[place] Labs Reviewed?: Yes ED Course ED Course Orders Procedure Category Date Status Time Levetiracetam 500 Mg PHA 04/20/25 Complete Tablet (Keppra 500 14:30 Cbc With Differential LAB 04/20/25 Complete 14:03 Basic Metabolic Panel LAB 04/20/25 Complete 14:03 Ct Head/Brain W/O CT 04/20/25 Resulted Contrast 14:42 ,Urine Test LAB 04/20/25 Complete 14:52 Urinalysis Profile LAB 04/20/25 Complete 14:52 Culture Urine TE 04/20/25 In Process 15:04 Current Medications Medications (Trade) Dose Ordered Sig/Mary Route PRN Reason Start Time Stop Time Status Last Admin Dose Admin Levetiracetam (kepPRA 500 MG TABLET) 1,000 mg ONCE ONCE PO 04/20/25 14:30 04/20/25 14:31 DC 04/20/25 14:22 Vital Signs Date Time Temp Pulse Resp B/P (MAP) Pulse Ox O2 Delivery O2 Flow Rate FiO2 04/20/25 14:18 98.8 97 18 118/80 97 Room Air* 0 21 04/20/25 13:57 98.2 103 18 133/86 98 Room Air 0 1445/PATIENT RECEIVED A 1000 MG KEPPRA P.O.. PATIENT DOES HAVE A TOUR CONSULTANT SHUNT PLACE, WE WILL SEND PATIENT FOR CT OF THE HEAD TO VERIFY FUNCTIONING AND PATENCY PATIENT REMAINS ALERT AND ORIENTED X4 SPEECH IS CLEAR.1605/ 1605/patient is alert and oriented x4 speech is clear. She is aware that TOUR CONSULTANT shunt is functioning normally. Told her to continue with her Keppra from her neurologist in [facility] Keep her appointment with him next week. Medical Decision Making MDM MDM: Differential diagnosis: Polydrug abuse/electrolyte imbalance/ dehydration//UTI/TOUR CONSULTANT shunt malfunction compliance Rationale: Tests considered and ordered secondary to shared decision making include: Labs/radiology Previous outside records reviewed: Old ER visits. Risk of complication and/or morbidity or mortality of patient management: None Medications-Per medication reconciliation Need for hospitalization: Patient does not meet criteria for hospitalization. None Need for emergency major/minor surgery: No There are no social concerns with this patient. Prescription drug management Prescriptions will include symptomatic care Patient's prior external medical records from other ER visits were reviewed by me as indicated. Prior testing and results from previous visits were reviewed. Prior tests were taken into account with medical decision making and resource utilization, independent historian/historians were used to obtain complete me dical history. I independently interpreted the test that were performed, results were reviewed by me and considered findings on radiology if ordered. Medical management and examination interpretation discussions were had by me with other qualified healthcare professionals as indicated for the patient's care. DX & DISP Disposition: Discharge Departure Impression: Primary Impression: Seizures Additional Impressions: Acute cystitis, Dehydration, Hyperglycemia, TOUR CONSULTANT (ventriculoperitoneal) shunt status Condition: Stable Scripts Amoxicillin/Potassium Clav (Amox Tr-K Clv 875-125 mg Tab) 875 Mg-125 Mg Tablet 1 EACH PO BID for 7 Days, #14 TAB 0 Refills Prov: JULI ABDALLA Dolly [facility] 04/20/25 Additional Instructions: Follow-up with primary care provider in 1 to 2 days. Take medications as directed here in the emergency room. Okay to continue home medications unless otherwise discussed during your visit in the emergency room today. Return to your nearest emergency room if symptoms worsen or if there is no improvement. Call 911 if you need immediate assistance. Take Tylenol or Motrin over-the- counter as needed and if no contraindications are present. Increase oral hydration. A wound culture or urine culture was ordered here in the emergency room department please follow-up with primary care provider and advise them to get repeat ports f rom our facility. If you had any Leonel wrap/splints that were applied here, please do not remove them until you see your primary care or specialty. Take antibiotics as directed until gone. Increase your water intake. Continue with Keppra as directed from keep appointment with him. Referrals: DAVID GUZMAN MD (PCP) Time of Disposition: 16:05 I have reviewed the case, and I agree with, Diagnosis and Plan JULI ADBALLA ROSTER CLERK Apr 20, 2025 14:08
[2025-04-20 14:19] LABS: IMMATURE GRANULOCYTE ABSOLUTE 0.01 K/uL (0-1); NUCLEATED RED BLOOD CELLS 0.0 % (0.0-0.19); PLATELET COUNT (AUTO) 230 K/uL (130-400); RED BLOOD CELL COUNT(AUTO) 4.65 MIL/uL (4.00-5.50); RED CELL DISTRIBUTION WIDTH 14.4 % (11.0-15.5); WHITE BLOOD COUNT (AUTO) 6.3 K/uL (4.8-10.8)
[2025-04-20 14:28] LABS: CREATININE 0.5 mg/dL (0.5-1.0); GLOMERULAR FILTR. RATE CALC 118.0 mL/min (>90); GLUCOSE,RANDOM 114.0 mg/dL (70-105); SODIUM SERUM 136.0 mmol/L (136-145); UREA NITROGEN, BLOOD 17.0 mg/dL (7-18)
[2025-04-20 15:02] LABS: APPEARANCE,URINE CLEAR (CLEAR); GLUCOSE, URINE (UA) NEGATIVE (NEGATIVE); LEUKOCYTE ESTERASE ,URINE 250 Leu/uL (NEGATIVE); NITRATE,URINE NEGATIVE (NEGATIVE); OCCULT BLOOD,URINE NEGATIVE (NEGATIVE)
[2025-04-20 15:03] LABS: ADD UA MICROSCOPIC YES
[2025-04-20 15:07] LABS: SQUAMOUS EPITHELIAL CELL,UR FEW /HPF (0-2)
[2025-04-20 15:29] LABS: HCG,QUALITATIVE URINE NEGATIVE (NEGATIVE)
--- NOTE | 2025-04-20 15:37 | HMCIMG ---
EXAM: CT Head Without IV contrast. CLINICAL HISTORY: MULTIPLE SEIZURES TODAY. 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 COMPARISON: February 07 2025 FINDINGS: BRAIN: No evidence of acute hemorrhage. No mass lesion. No CT evidence for acute territorial infarct. No midline shift or extra-axial collections. 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 VENTRICLES: Dilated ventricular system with SENIOR HOUSEKEEPER shunt terminating in the right lateral ventricle unchanged. ORBITS: The orbits are unremarkable. SINUSES AND MASTOIDS: The paranasal sinuses and mastoid air cells are clear. BONES: No fracture. SOFT TISSUES: Unremarkable. IMPRESSION: No acute intracranial abnormality. Chronic changes as described /[place]
[2025-04-20] MEDS ORDERED: AMOX1TAB16 PO (16:06)
[2025-04-20 16:22] VITALS: BP 119/73; PULSE 91; RESP 18; TEMP 98.6; O2SAT 98
[2025-04-20] MEDS: AMOX/CLAV 875/125MG TAB PO ONE (16:22)
== END 2025-04-20 16:24 | disposition home or self-care (01) ==
LOC: EDH 13:56
DX: R56.9 Unspecified convulsions (principal); N30.00 Acute cystitis without hematuria; E86.0 Dehydration; R73.9 Hyperglycemia, unspecified; Z98.2 Presence of cerebrospinal fluid drainage device; Z88.6 Allergy status to analgesic agent; Z79.82 Long term (current) use of aspirin; Z79.899 Other long term (current) drug therapy
CPT/HCPCS: 36415; 70450; 80048; 81001; 81025; 85025; 87086; 99284

== ENCOUNTER 2025-04-29 04:00 | Emergency (ER) | payer OTHER, MEDICARE ==
[~2025-04-29] VITALS: Ht 157.5 cm; Wt 68.0 kg
[~2025-04-29 04:00] MED LIST changes: +AMOX1TAB16 PO
[2025-04-29 04:26] LABS: RAPID GROUP A STREP negative (NEGATIVE)
[2025-04-29 04:30] LABS: SARS-CoV-2, RNA, NAAT NEGATIVE SARS CoV-2 (NEGATIVE)
--- NOTE | 2025-04-29 04:34 | ERN ---
General Chief Complaint: Flu Symptoms Stated Complaint: BODY ACHES AND CHILLS Time Seen by MD: 04:21 Source: patient History of Present Illness Initial Comments 44-year-old female with body aches and chills sore throat sinus pain comes in after five days of not able to control her symptoms with [id number] medications and not eating well not drinking well. She is currently taking amoxicillin for a urinary tract infection. Her heart rate is 90 Allergies: Coded Allergies: ibuprofen (Unverified Allergy, Mild, DIZZINESS, 03/11/24) loperamide (Unverified Allergy, Unknown, 12/09/24) Home Meds Active Scripts Amoxicillin/Potassium Clav (Amox Tr-K Clv 875-125 mg Tab) 875 Mg-125 Mg Tablet, 1 EACH PO BID for 7 Days, #14 TAB 0 Refills Prov:JULI ABDALLAP 04/20/25 Hydroxyzine HCl (Hydroxyzine HCl) 25 Mg Tablet, 25 MG PO HS for Insomnia for 7 Days, #7 TAB 0 Refills Prov:SUMIT FUENTES MD 03/06/25 Melatonin (Melatonin) 5 Mg Tab.subl, 1 TAB PO HS for sleep for 10 Days, #10 TAB 0 Refills Prov:SUMIT FUENTES MD 03/06/25 Cephalexin Monohydrate (Keflex) 500 Mg Cap, 1 CAP PO BID for 7 Days, #14 CAP 0 Refills Prov:SUNNI MATUTE MD 09/28/24 Phenytoin Sodium Extended (Phenytoin Sodium Extended) 100 Mg Capsule, 200 MG PO BID, #60 CAP Prov:SUNNI MATUTE MD 09/28/24 Levetiracetam (Levetiracetam) 1,000 Mg Tablet, 2000 MG PO HS, #30 TAB Prov:SUNNI MATUTE MD 09/28/24 Levetiracetam (Levetiracetam) 1,000 Mg Tablet, 1500 MG PO DAILY, #30 TAB Prov:SUNNI MATUTE MD 09/28/24 Sertraline HCl (Sertraline HCl) 100 Mg Tablet, 100 MG PO DAILY, #30 TAB Prov:SUNNI MATUTE MD 09/28/24 Reported Medications Aspirin (Aspirin) 81 Mg Tab.chew, 81 MG PO DAILY, TAB.CHEW 09/30/24 Lacosamide (Lacosamide) 100 Mg Tablet, 1 TAB PO BID 09/30/24 Folic Acid (Folvite) 1 Mg Tab, 1 MG PO DAILY, TAB 03/11/24 Gabapentin (Gabapentin) 600 Mg Tablet, 600 MG PO BID, TAB 03/11/24 Cetirizine HCl (Cetirizine HCl) 10 Mg Tablet, 10 MG PO DAILY, TAB 03/11/24 Esomeprazole Magnesium (Esomeprazole Magnesium) 40 Mg Capsule.dr, 40 MG PO DAILY, CAP 03/11/24 Albuterol Sulfate (Ventolin Hfa) 90 Mcg Hfa.aer.ad, 18 GM IH TID PRN for RESPIRATORY SYMPTOMS, INHALER 09/27/23 Lorazepam (Ativan) 2 Mg Tablet, 2 MG PO BID PRN for ANXIETY/AGITATION, TAB 09/27/23 Esomeprazole Magnesium (Esomeprazole Magnesium) 40 Mg Capsule.dr, 40 MG PO DAILY, CAP 09/27/23 Past Medical History Past Medical History: High Cholesterol, Other Medical History Other: SEIZURES Past Surgical History: Other 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 Social History Social History: Drugs, Negative, Other Female( History) History: Not Applicable Constitutional: (+) fever, (+) malaise, (+) weakness EENTM: (-) eye pain, (-) blurred vision, (-) tearing, (-) double vision, (-) ear pain, (-) ear discharge, (-) nose pain, (-) nose congestion, (-) throat pain, (-) Throat swelling, (-) mouth pain, (-) tooth pain, (-) mouth swelling, (-) other documentation Respiratory: (+) cough, (+) wheezing Cardiovascular: (-) chest pain, (-) edema, (-) palpitations, (-) syncope, (-) dyspnea on exertion, (-) other documentation Gastrointestinal/Abdominal: (+) nausea, (+) vomiting Genitourinary: (-) vaginal discharge, (-) vaginal bleeding, (-) dysuria, (-) frequency, (-) hematuria, (-) pain, (-) other documentation Musculoskeletal: (-) Neck pain, (-) back pain, (-) Flank Pain, (-) joint pain, (-) joint swelling, (-) muscle pain, (-) muscle stiffness, (-) gout, (-) other documentation Skin: (-) laceration, (-) contusion, (-) abrasion, (-) abscess, (-) rash, (-) change in color, (-) change in hair, (-) change in nails, (-) diaphoresis, (-) dryness, (-) other documentation Neuro: (+) headache (Sinus pain and congestion) Physical Exam General Appearance: (+) moderate distress Orientation: (+) alert, (+) oriented x 3 Head/Face Trauma: No Eye: bilateral eye normal inspection, bilateral eye PERRL, bilateral eye EOMI Ear, Nose, Throat: (+) hearing grossly normal, (+) normal ENT inspection, (+) moist mucous membraine Neck: (+) normal inspection, (+) supple, (+) full range of motion Respiratory: (+) chest non-tender, (+) lungs clear, (+) well ventilated Heart: (+) regular, (+) tachycardia Vascular: (+) no edema, (+) normal peripheral pulse, (+) no JVD Vascular Comment Peripheral pulses weak Gastrointestinal: (+) soft, (+) non-tender, (+) bowel sound present Results Laboratory and Microbiology Lab and Micro Result Laboratory Tests Test 04/29/25 04:13 04/29/25 04:32 04/29/25 04:53 Influenza Type A Antigen Negative For Type A Influenza Type B Antigen Negative For Type B SARS-CoV-2, RNA, NAAT NEGATIVE SARS CoV-2 Group A Streptococcus Rapid negative (NEGATIVE) Urine Color LIGHT-YELLOW (YELLOW) Urine Appearance CLEAR (CLEAR) Urine pH 6.5 (5.0-8.0) Urine Specific [place] 1.021 (1.001-1.031) Urine Protein NEGATIVE mg/dL (NEGATIVE) Urine Glucose (UA) NEGATIVE mg/dL (NEGATIVE) Urine Ketones NEGATIVE mg/dL (NEGATIVE) Urine Occult Blood NEGATIVE (NEGATIVE) Urine Nitrate NEGATIVE (NEGATIVE) Urine Bilirubin NEGATIVE mg/dL (NEGATIVE) Urine Urobilinogen 0.2 mg/dL (0.2-1.0) Urine Leukocyte Esterase NEGATIVE Gutierrez/uL White Blood Count 7.2 K/uL (4.8-10.8) Red Blood Count 4.20 MIL/uL (4.00-5.50) Hemoglobin 10.9 g/dL (12.0-16.0) L Hematocrit 34.4 % (36-48) L Mean Corpuscular Volume 81.9 fL (79-99) Mean Corpuscular Hemoglobin 26.0 pg (27.0-33.0) L Mean Corpuscular Hemoglobin Concent 31.7 g/dL (32.0-36.0) L Red Cell Distribution Width 14.5 % (11.0-15.5) Platelet Count 228 K/uL (130-400) Mean Platelet Volume 10.6 fL (7.5-10.5) H Immature Granulocyte % (Auto) 0.3 % (0-1) Neutrophils (%) (Auto) 59.1 % (40.0-77.0) Lymphocytes (%) (Auto) 26.7 % (21.0-51.0) Monocytes (%) (Auto) 9.9 % (3.0-13.0) Eosinophils (%) (Auto) 3.6 % (0.0-8.0) Basophils (%) (Auto) 0.4 % (0.0-5.0) Neutrophils # (Auto) 4.2 K/uL (1.8-7.7) Lymphocytes # (Auto) 1.9 K/uL (1.0-4.8) Monocytes # (Auto) 0.7 K/uL (0.1-1.0) Eosinophils # (Auto) 0.26 K/uL (0.00-0.70) Basophils # (Auto) 0.03 K/uL (0.00-0.20) Absolute Immature Granulocyte (auto 0.02 K/uL (0-1) Nucleated Red Blood Cells 0.0 % (0.0-0.19) Sodium Level 136 mmol/L (136-145) Potassium Level 3.5 mmol/L (3.5-5.1) Chloride Level 103 mmol/L (101-111) Carbon Dioxide Level 27 mmol/L (21-32) Blood Urea Nitrogen 15 mg/dL (7-18) Creatinine 0.6 mg/dL (0.5-1.0) Glomerular Filtration Rate Calc 113 mL/min (>90) Random Glucose 107 mg/dL (70-105) H Total Calcium 8.1 mg/dL (8.5-10.1) L MDM MDM: Differential diagnosis: Sinus infection, upper respiratory tract infection, gastroenteritis, UTI, dehydration, infected shunt Rationale: Tests considered and ordered secondary to shared decision making include: Previous outside records reviewed: Old ER visits. Risk of complication and/or morbidity or mortality of patient management: None Medications-Per medication reconciliation Need for hospitalization: Patient does meet criteria for hospitalization. Need for emergency major/minor surgery: No There are no social concerns with this patient. Prescription drug management Prescriptions will include symptomatic care Patient's prior external medical records from other ER visits were reviewed by me as indicated. Prior testing and results from previous visits were reviewed. Prior tests were taken into account with medical decision making and resource utilization, independent historian/historians were used to obtain complete medical history. I independently interpreted the test that were performed, results were reviewed by me and considered findings on radiology if ordered. Patient's lab work is negative for any abnormalities. Her CBC shows a normal white blood cell count. Her chemistry panel is normal. Her nasal swabs are normal. Her chest x-ray is normal. I explained to the patient and recommended Sudafed for her sinus pain. She is requesting a ride home. ED Course Orders Procedure Category Date Status Time Covid Rna Naat LAB 04/29/25 Complete 04:09 Influenza Type A & B, LAB 04/29/25 Complete Rapid 04:09 Rapid (Group A Strep) LAB 04/29/25 Complete 04:09 Chest 1vw RAD 04/29/25 Resulted 04:22 Basic Metabolic Panel LAB 04/29/25 Complete 04:22 Cbc With Differential LAB 04/29/25 Complete 04:22 Urinalysis Profile LAB 04/29/25 Complete 04:22 Covid19 (Sars Antigen LAB 04/29/25 Logged Rapid) 04:22 Rapid (Group A Strep) LAB 04/29/25 Logged 04:22 Lactated Ringers PHA 04/29/25 Complete 1000ml (Lactated 04:22 Acetaminophen 325 Tab PHA 04/29/25 Complete (Tylenol 325mg Tab 05:00 Current Medications Medications (Trade) Dose Ordered Sig/Mary Route PRN Reason Start Time Stop Time Status Last Admin Dose Admin Acetaminophen (TYLenol 325MG TAB) 650 mg ONCE ONCE PO 04/29/25 05:00 04/29/25 05:01 DC 04/29/25 04:57 Lactated Ringer's (Lactated Ringers 1000ml) 2,000 ml BOLUS STAT IV 04/29/25 04:22 04/29/25 04:24 DC 04/29/25 04:57 Vital Signs Date Time Temp Pulse Resp B/P (MAP) Pulse Ox O2 Delivery O2 Flow Rate FiO2 04/29/25 04:11 98.2 96 18 127/78 98 Room Air* 0 21 04/29/25 04:07 98.2 99 16 134/84 98 Room Air 0 DX & DISP Disposition: Discharge Departure Impression: Primary Impression: Upper respiratory tract infection Condition: Stable Additional Instructions: You have an upper respiratory tract infection and I think maybe a sinus infection as well . 99% of these infections are caused by viruses. Therefore no antibiotics are needed. You do have a normal urinary analysis so the UTI that you were diagnosed with has resolved. A complete your course of amoxicillin. I recommend Sudafed for your sinus pain. It will help decrease the swelling in the sinuses and increase the drainage. Sent a prescription to your pharmacy. For throat pain gargling with warm salt water can help make it feel better. Referrals: DAVID GUZMAN MD (PCP) ROMEO ELAM MD Apr 29, 2025 04:34
[2025-04-29 04:35] LABS: INFLUENZA TYPE A Negative For Type A (NEGATIVE); INFLUENZA TYPE B Negative For Type B (NEGATIVE)
[2025-04-29 04:57] LABS: APPEARANCE,URINE CLEAR (CLEAR); GLUCOSE, URINE (UA) NEGATIVE (NEGATIVE); LEUKOCYTE ESTERASE ,URINE NEGATIVE Leu/uL (NEGATIVE); NITRATE,URINE NEGATIVE (NEGATIVE); OCCULT BLOOD,URINE NEGATIVE (NEGATIVE)
[2025-04-29] MEDS: LACTATED RINGERS 1000ML IV STA (04:57)
[2025-04-29 05:00] LABS: ADD UA MICROSCOPIC NO
[2025-04-29 05:04] LABS: IMMATURE GRANULOCYTE ABSOLUTE 0.02 K/uL (0-1); NUCLEATED RED BLOOD CELLS 0.0 % (0.0-0.19); PLATELET COUNT (AUTO) 228 K/uL (130-400); RED BLOOD CELL COUNT(AUTO) 4.20 MIL/uL (4.00-5.50); RED CELL DISTRIBUTION WIDTH 14.5 % (11.0-15.5); WHITE BLOOD COUNT (AUTO) 7.2 K/uL (4.8-10.8)
[2025-04-29 05:20] LABS: CREATININE 0.6 mg/dL (0.5-1.0); GLOMERULAR FILTR. RATE CALC 113.0 mL/min (>90); GLUCOSE,RANDOM 107.0 mg/dL (70-105); SODIUM SERUM 136.0 mmol/L (136-145); UREA NITROGEN, BLOOD 15.0 mg/dL (7-18)
--- NOTE | 2025-04-29 05:27 | HMCIMG ---
EXAM: CR Chest, single view. CLINICAL HISTORY: Shortness of breath. COMPARISON: Prior chest radiograph dated December 09, 2024. FINDINGS: The lungs show no infiltrate or other acute findings. No pleural effusion or pneumothorax. The cardiomediastinal silhouette is within normal limits. No acute osseous abnormality. Mild degenerative changes in the mid and lower thoracic spine. The ventriculoperitoneal shunt is identified traversing along the medial aspect of the left chest wall. IMPRESSION: No acute cardiopulmonary pathology is evident. Ventricle peritoneal shunt is identified traversing along the medial aspect of the left chest wall. Compared to the prior study, there is no significant interval change. /[place]
[2025-04-29] MEDS ORDERED: PSEU-225 PO (06:01)
--- NOTE | 2025-04-29 06:15 | NUR ---
discharge pending completion of iv fluids
[2025-04-29 07:06] VITALS: BP 128/80; PULSE 87; RESP 15; TEMP 98.1; O2SAT 98
== END 2025-04-29 07:30 | disposition home or self-care (01) ==
LOC: EDH 04:00
DX: J06.9 Acute upper respiratory infection, unspecified (principal); E78.00 Pure hypercholesterolemia, unspecified; N39.0 Urinary tract infection, site not specified; Z88.6 Allergy status to analgesic agent; Z79.82 Long term (current) use of aspirin; Z79.2 Long term (current) use of antibiotics; Z79.899 Other long term (current) drug therapy; Z98.2 Presence of cerebrospinal fluid drainage device; Z20.822 Contact with and (suspected) exposure to COVID-19
CPT/HCPCS: 99284; 96360; 71045; 87635; 96361; 80048; 85025; 87880; 87804 ×2; 81003; 36415; J7120

== ENCOUNTER → 2025-04-29 | Emergency (ER) | payer OTHER, MEDICARE ==
[~2025-04-29] VITALS: Ht 154.9 cm; Wt 72.6 kg
--- NOTE | 2025-04-29 16:01 | ERN ---
ED Note History of Present Illness Stated Complaint: GENERAL WEAKNESS-DX'D W/URI THIS AM AND D/C'D HOME Chief Complaint: Weakness Time Seen by MD: 15:47 Dictation: PATIENT IS A 44-YEAR-OLD FEMALE COMING IN WHO [place] WE[place] [facility] [place] WITH COMPLAINTS OF HAVING A POSSIBLE SEIZURE. SHE STATES SHE WAS ARGUING WITH HER BOYFRIEND, AMY WHEN SHE GOT VERY PISSED OFF AND SHE WAS SHAKING HER FIST AT HIM. HE CALLED 911 AND TOLD EMS THAT SHE WAS HAVING A SEIZURE HOWEVER SHE SAID SHE REMEMBERS THE ENTIRE TIME SHE WAS THERE AND TALKING TO HER BOYFRIEND AND EMS STAFF. THERE WAS NO POSTICTAL ACTIVITY. 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 SHE IS ALSO TAKING ATIVAN FROM HER DOCTOR. SHE STATES I DO NOT WANT TO GO HOME TO THAT IS SON OF A BITCH I WOULD RATHER TAKE A TAXI CAB HOME. COMPLAINTS OF AT THIS TIME. PATIENT HAD JUST BEEN SEEN THIS MORNING FOR A FULL WORKUP BY DR. ELAM AND WAS DIAGNOSED WITH A VIRAL URI. SHE IS ON YOUSSEF EPHEDRINE. Allergies: Coded Allergies: ibuprofen (Unverified Allergy, Mild, DIZZINESS, 03/11/24) loperamide (Unverified Allergy, Unknown, 12/09/24) Home Meds Active Scripts Pseudoephedrine HCl (Pseudoephedrine HCl) 60 Mg Tablet, 1 TAB PO TID for cold symptoms for 10 Days, #30 TAB 0 Refills Prov:ROMEO ELAM MD 04/29/25 Amoxicillin/Potassium Clav (Amox Tr-K Clv 875-125 mg Tab) 875 Mg-125 Mg Tablet, 1 EACH PO BID for 7 Days, #14 TAB 0 Refills Prov:JULI ABDALLA 04/20/25 Hydroxyzine HCl (Hydroxyzine HCl) 25 Mg Tablet, 25 MG PO HS for Insomnia for 7 Days, #7 TAB 0 Refills Prov:SUMIT FUENTES MD 03/06/25 Melatonin (Melatonin) 5 Mg Tab.subl, 1 TAB PO HS for sleep for 10 Days, #10 TAB 0 Refills Prov:SUMIT FUENTES MD 03/06/25 Cephalexin Monohydrate (Keflex) 500 Mg Cap, 1 CAP PO BID for 7 Days, #14 CAP 0 Refills Prov:SUNNI MATUTE MD 09/28/24 Phenytoin Sodium Extended (Phenytoin Sodium Extended) 100 Mg Capsule, 200 MG PO BID, #60 CAP Prov:SUNNI MATUTE MD 09/28/24 Levetiracetam (Levetiracetam) 1,000 Mg Tablet, 2000 MG PO HS, #30 TAB Prov:SUNNI MATUTE MD 09/28/24 Levetiracetam (Levetiracetam) 1,000 Mg Tablet, 1500 MG PO DAILY, #30 TAB Prov:SUNNI MATUTE MD 09/28/24 Sertraline HCl (Sertraline HCl) 100 Mg Tablet, 100 MG PO DAILY, #30 TAB Prov:SUNNI MATUTE MD 09/28/24 Reported Medications Aspirin (Aspirin) 81 Mg Tab.chew, 81 MG PO DAILY, TAB.CHEW 09/30/24 Lacosamide (Lacosamide) 100 Mg Tablet, 1 TAB PO BID 09/30/24 Folic Acid (Folvite) 1 Mg Tab, 1 MG PO DAILY, TAB 03/11/24 Gabapentin (Gabapentin) 600 Mg Tablet, 600 MG PO BID, TAB 03/11/24 Cetirizine HCl (Cetirizine HCl) 10 Mg Tablet, 10 MG PO DAILY, TAB 03/11/24 Esomeprazole Magnesium (Esomeprazole Magnesium) 40 Mg Capsule.dr, 40 MG PO DAILY, CAP 03/11/24 Albuterol Sulfate (Ventolin Hfa) 90 Mcg Hfa.aer.ad, 18 GM IH TID PRN for RESPIRATORY SYMPTOMS, INHALER 09/27/23 Lorazepam (Ativan) 2 Mg Tablet, 2 MG PO BID PRN for ANXIETY/AGITATION, TAB 09/27/23 Esomeprazole Magnesium (Esomeprazole Magnesium) 40 Mg Capsule.dr, 40 MG PO DAILY, CAP 09/27/23 Past Medical History Past Medical History: High Cholesterol, Other Additional Past Medical Hx: SEIZURES Surgical History: Other Surgical History Other: PLANER SETTER SHUNT Social History: Drugs, Negative, Other History: Not Applicable RN Note Reviewed/Agreed w/PFSH: Yes Review of System Dictation CONSTITUTIONAL: NEGATIVE EXCEPT FOR HPI HEAD/FACE: NEGATIVE EXCEPT FOR HPI EENT: NEGATIVE EXCEPT FOR HPI RESPIRATORY: NEGATIVE EXCEPT FOR HPI GASTROINTESTINAL/ABDOMINAL: NEGATIVE EXCEPT FOR HPI GENITOURINARY: NEGATIVE EXCEPT FOR HPI MUSCULOSKELETAL: NEGATIVE EXCEPT FOR HPI INTEGUMENTARY: NEGATIVE EXCEPT FOR HPI NEUROLOGICAL/PSYCH: NEGATIVE EXCEPT FOR HPI VEGETATION HEMATOLOGIC/LYMPHATIC: NEGATIVE EXCEPT FOR HPI ALL SYSTEMS NEGATIVE, EXCEPT NOTED ABOVE. 13 POINT REVIEW OF SYSTEMS ASSESSED AND ALL NEGATIVE EXCEPT FOR ABOVE. Physical Exam Dictation VITAL SIGNS REVIEWED GENERAL APPEARANCE: ALERT, ORIENTED X 3, NO ACUTE DISTRESS, WELL DEVELOPED, NOURISHED. HEAD AND FACE: NON-TRAUMATIC. EYES: PERRL, PINK CONJUNCTIVAS, EYELID NO TRAUMA, ANTERIOR CHAMBER WITH ARCUS SENILIS. EARS: PINNAS INTACT AND NO SIGNS OF TRAUMA OR ERYTHEMA EAR CANALS CLEAR AND NO DISCHARGE TM NO ERYTHEMA NOSE: NO DISCHARGE, NO BLEEDING. OROPHARYNX: MOUTH NORMAL, TONGUE PINK, PHARYNX CLEAR,NO ERYTHEMA, TONSILS NO EXUDATES, NO ABSCESSES NOTED, MUCOUS MEMBRANE MOIST NECK: SUPPLE, NON-TENDER, NO THYROMEGALY, NO MASSES, NO JVD, NO BRUITS BREAST:DEFERRED CHEST:NO TENDERNESS, NO CREPITUS, NO PARADOXICAL MOVEMENT, NO RETRACTIONS LUNGS:CLEAR, WELL-VENTILATED, SYMMETRIC, NO RALES, NO WHEEZING, NO RHONCHI, NO STRIDOR, GOOD BREATH SOUNDS BILATERALLY HEART: REGULAR RATE, REGULAR RHYTHM, NO MURMUR, NO GALLOPS VASCULAR: NO PERIPHERAL EDEMA, ABDOMEN: SOFT, POSITIVE BOWEL SOUNDS, NONDISTENDED, NO GUARDING, NONTENDER, NO REBOUND, NO MASSES NO HEPATOMEGALY, NO SPLENOMEGALY, NO SAINI'S SIGN, NO HERNIAS. RECTAL: DEFERRED GENITAL: DEFERRED NEUROLOGICAL: NORMAL SPEECH, MOTOR FUNCTION INTACT, SENSORY FUNCTION INTACT ANGRY AFFECT, DIRECTED TOWARD HER BOYFRIEND AMY. MUSCULOSKELETAL: NECK NONTENDER, FULL RANGE OF MOTION, BACK NONTENDER, FULL RANGE OF MOTION, EXTREMITIES: NONTENDER, FULL RANGE OF MOTION SKIN: COLOR PINK, DRY, NO TURGOR, NO RASH, NO LACERATIONS, NO ABRASIONS, NO CONTUSIONS. LYMPHATIC: DEFERRED Results (Laboratory/Radiology) Labs Reviewed?: Yes Medical Decision Making MDM 1600/MEDICAL DECISION-MAKING BASED ON HPI AND ASSESSMENT OF PATIENT. SHE VOICES NO COMPLAINTS AT THIS TIME. SHE STATES SHE DID NOT HAVE A SEIZURE, SHE WAS AND IS ANGRY AT HER BOYFRIEND AMY. SHE STATES SHE DOES NOT HEAR HAVE ANY FEAR OF GOING HOME NO OTHER COMPLAINTS OF VOICE NO LABS OR IMAGING INDICATED DX & DISP Disposition: Discharge Departure Impression: Primary Impression: Anxiety as acute reaction to exceptional stress Condition: Stable Additional Instructions: FOLLOW-UP WITH PRIMARY CARE PROVIDER IN 1 TO 2 DAYS. TAKE MEDICATIONS DIRECTED HERE IN THE EMERGENCY ROOM. OKAY TO CONTINUE HOME MEDICATIONS UNLESS OTHERWISE DISCUSSED DURING YOUR VISIT IN THE EMERGENCY ROOM TODAY. RETURN TO YOUR NEAREST EMERGENCY ROOM IF SYMPTOMS WORSEN OR IF THERE IS NO IMPROVEMENT. CALL 911 IF YOU NEED IMMEDIATE ASSISTANCE. TAKE TYLENOL OR MOTRIN [id number] NEEDED AND IF NO CONTRAINDICATIONS ARE PRESENT. INCREASE ORAL HYDRATION. A WOUND CULTURE OR URINE CULTURE WAS ORDERED HERE IN THE EMERGENCY ROOM DEPARTMENT PLEASE FOLLOW-UP WITH PRIMARY CARE PROVIDER AND ADVISE THEM TO GET REPEAT PORTS FROM OUR FACILITY. IF YOU HAD ANY CATHRYN WRAP/SPLINTS THAT WERE APPLIED HERE, PLEASE DO NOT REMOVE THEM UNTIL YOU SEE YOUR PRIMARY CARE OR SPECIALTY. CONTINUE YOUR KEPPRA AND ATIVAN AT HOME. SEE YOUR PRIMARY CARE DOCTOR IN THE NEXT 1-2 DAYS Referrals: DAVID GUZMAN MD (PCP) Time of Disposition: 16:00 I have reviewed the case, and I agree with, Diagnosis and Plan JULI ABDALLA Apr 29, 2025 16:01
--- NOTE | 2025-04-29 16:27 | NUR ---
PT STABLE NO DISTRESS, PT ABMULATING TO RESTROOM WITH ASSIST. NO IV AT THIS TIME. PT CLEDARED BY JULI Harry NP, INSTRUCTIONS GIVEN AT BEDSIDE, SISTER CALLED TO PICK PT UP, PT TAKEN IN W/C TO ED LOBBY WITH PERSONAL BELONGINGS, STATES SHE WILL WAIT FOR HER RIDE SISTER ON THE WAY.
[2025-04-29 16:44] VITALS: BP 123/78; PULSE 101; RESP 17; TEMP 98.3; O2SAT 99
== END ==
LOC: EDH 15:38
DX: F41.1 Generalized anxiety disorder (principal); F43.0 Acute stress reaction; E78.00 Pure hypercholesterolemia, unspecified; Z88.6 Allergy status to analgesic agent; Z79.899 Other long term (current) drug therapy; Z98.2 Presence of cerebrospinal fluid drainage device; Z79.82 Long term (current) use of aspirin; R53.1 Weakness
CPT/HCPCS: 99283

== ENCOUNTER 2025-05-28 17:55 | Emergency (ER) | payer OTHER, MEDICARE ==
[~2025-05-28] VITALS: Ht 154.9 cm; Wt 72.6 kg
[~2025-05-28 17:55] MED LIST changes: +PSEU-225 PO
[2025-05-28 18:00] VITALS: BP 132/75; PULSE 99; RESP 18; TEMP 98.3
--- NOTE | 2025-05-28 19:30 | NUR ---
PER SECURITY, PT CALLED SOMEONE AND WAS PICKED UP
--- NOTE | 2025-05-28 19:42 | NUR ---
PT CALLED, NO ANSWER
--- NOTE | 2025-05-28 19:55 | NUR ---
PT CALLED, NO ANSWER
--- NOTE | 2025-05-28 19:59 | NUR ---
CALLED NO ANSWER
== END 2025-05-28 19:30 | disposition left against medical advice (07) ==
LOC: EDH 17:55
DX: R56.9 Unspecified convulsions (principal); Z53.21 Procedure and treatment not carried out due to patient leaving prior to being seen by health care provider
CPT/HCPCS: 99281